=== PATIENT | male | born 1960 ===

== ENCOUNTER 2018-11-29 07:43 | Outpatient (CLI) | payer OTHER ==
[~2018-11-29] VITALS: Ht 172.7 cm; Wt 69.9 kg
[2018-11-29] MEDS ORDERED: ZYRTEC10 MG PO (09:18)
[2018-11-29] MEDS ORDERED: FLONASE16 GM NASAL (09:18)
== END 2018-11-29 08:05 | disposition home or self-care (01) ==
LOC: OFIC 805 07:43
DX: J31.0 Chronic rhinitis (principal); J34.3 Hypertrophy of nasal turbinates; J34.2 Deviated nasal septum; G44.009 Cluster headache syndrome, unspecified, not intractable

== ENCOUNTER 2020-11-10 11:22 | Outpatient (CLI) | payer OTHER ==
[~2020-11-10 11:22] MED LIST: FLONASE16 GM NASAL; ZYRTEC10 MG PO
== END 2020-11-10 11:25 | disposition home or self-care (01) ==
LOC: SONOGRAMA 11:22
PROVIDERS: ATTEND Pathology Anatomic Pathology & Clinical Pathology
DX: D34 Benign neoplasm of thyroid gland (principal); E04.2 Nontoxic multinodular goiter